=== PATIENT | male | born 2000 | race Caucasian/White ===

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

== ENCOUNTER 2022-02-09 11:22 | Emergency (ER) | payer BC, SELFPAY ==
[2022-02-09 12:03] VITALS: BP 125/75; PULSE 92; RESP 18; TEMP 36.7; O2SAT 98; BMI 23.3
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
[2022-02-09 12:12] VITALS: BP 121/74; PULSE 90; RESP 16; TEMP 36.7; O2SAT 98
== END 2022-02-09 12:12 | disposition home or self-care (01) ==
PROVIDERS: Emergency Provider Nurse Practitioner Family
DX: U07.1 COVID-19 (principal)
CPT/HCPCS: 99212; C9803; G0463; U0003; U0005

== ENCOUNTER 2022-02-14 11:50 | Emergency (ER) | payer BC, SELFPAY ==
[2022-02-14 12:15] VITALS: BP 112/76; PULSE 89; RESP 21; TEMP 36.7; O2SAT 97; BMI 23.8
--- NOTE | 2022-02-14 13:04 | HMH.EDUTC ---
[facility] [place] Disposition Clinical Impression: Encounter for laboratory testing for COVID-19 virus Disposition: Home, Self-Care Condition on Discharge: Good Instructions: DI for COVID-19 (Suspected or Confirmed ), Preventing the Spread of Coronavirus Discharge Instructions Additional Instructions: May return to work per CDC guidelines or company policy If you are no longer having symptoms may return after 5-10 days but need to wear a well fitted mask Return if needed Straight to ER if any life threatening symptoms Referrals: Provider,Referral, MD [Primary Care Provider] - As needed Forms: Work/School Release Time of Disposition: 13:09 Medical Decision Making - Raul Inquiry Pt receiving controlled substance: No Raul was queried for this patient: No Vital Signs: 02/14/22 12:15 Temperature 98.0 F Temperature Source Oral Pulse Rate [Right Brachial] 89 Respiratory Rate 21 Blood Pressure [Right Arm] 112/76 Blood Pressure Mean [Right Arm] 88 Blood Pressure Source [Right Arm] Automatic Cuff Blood Pressure Position [Right Arm] Sitting 02 Sat by Pulse Oximetry 97 Oxygen Delivery Method Room Air Orders (Tests/Meds): ORDERS Category Date Time Status Covid-19 Nasal PCR ([facility]) Routine Lab 02/14/22 12:15 Received [facility] [place] HPI - General Stated complaint: congested, needs covid test Time Seen by Provider: 02/14/22 13:04 Mode of Arrival: Ambulatory Source of Information: Patient Limitations: No Limitations Description of Symptoms (Recalled from Triage Doc. by RN): PATIENT TESTED POSITIVE FOR COVID LAST WEEK AND IS NEEDING A NEGATIVE TEST TO RETURN TO WORK HEENT Symptoms (Recalled from RN notes): No Resp Symptoms (Recalled from RN notes): No Skin Symptoms (Recalled from RN notes): No MS Symptoms (Recalled from RN notes): No Functional Status (Recalled from RN notes): WNL - History of Present Illness Provider Complaint: Patient states that he was positive for COVID about a week ago State that they are wanting him to get retested and have a negative teste before he can return so he came in to get tested - Related Data Previous Rx's Medication Instructions Recorded cephALEXin [Keflex 500mg Cap] 500 mg PO Q6H 5 Days #20 cap 07/13/20 Amoxicillin/Potassium Clav 1 tab PO BID #20 tab 12/03/21 [Amox-Clav 875-125 mg Tablet] Brompheniramine/Pseudoephed/Dm 5 ml PO Q6HP PRN #240 ml 12/03/21 [Bromfed Dm Cough Syrup] methylPREDNISolone [Medrol] 4 mg PO DIRECTED 6 Days #21 12/03/21 packet Brompheniramine/Pseudoephed/Dm 5 ml PO Q6HP PRN #240 ml 02/09/22 [Bromfed Dm Cough Syrup] Ondansetron [Zofran 4mg ODT] 4 mg PO Q8HP PRN #12 tab 02/09/22 Allergies Allergy/AdvReac Type Severity Reaction Status Date / Time No Known Allergies Allergy Unverified 07/11/17 14:13 - Worker's Comp Is this a Worker's Comp case?: No [facility] History - Hepatitis A Screen Attestation statement:: This patient has been screened for Hepatitis A risk factors. I have reviewed the patient's past medical history: Yes - Social History Alcohol Intake: never Occupational Status: other ROS Obtained: Yes All systems reviewed & no additional complaints, Yes Systems reviewed as appropriate & no additional complaints - Constitutional Constitutional: Reports system reviewed and no additional complaints, except as docu, Denies body ache, Denies chills, Denies fever(s) - ENT Ears, Nose, Mouth, and Throat: Reports system reviewed and no additional complaints, except as docu, Denies nasal congestion, Denies nasal discharge, Denies sore throat - Cardiovascular Cardiovascular: Reports system reviewed and no additional complaints, except as docu - Respiratory Respiratory: Reports system reviewed and no additional complaints, except as docu, Denies shortness of breath, Denies cough, Denies dyspnea Physical Exam - General General appearance: alert, in no apparent distress - Respiratory Respiratory exam: Present: normal luis alfredo
[2022-02-14 13:12] VITALS: BP 112/76; PULSE 89; RESP 21; TEMP 36.7; O2SAT 97
== END 2022-02-14 13:15 | disposition home or self-care (01) ==
PROVIDERS: Emergency Provider Nurse Practitioner
DX: U07.1 COVID-19 (principal)
CPT/HCPCS: 99212; C9803; G0463; U0003; U0005

== ENCOUNTER 2022-04-11 13:33 | Emergency (ER) | payer BC, SELFPAY ==
[2022-04-11 13:57] VITALS: BP 111/77; PULSE 67; RESP 16; TEMP 36.7; O2SAT 98; BMI 23.3
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
[2022-04-11 15:33] VITALS: BP 111/77; PULSE 67; RESP 16; TEMP 36.7
== END 2022-04-11 15:35 | disposition home or self-care (01) ==
PROVIDERS: Emergency Provider Nurse Practitioner
DX: S93.401A Sprain of unspecified ligament of right ankle, initial encounter (principal); W20.8XXA Other cause of strike by thrown, projected or falling object, initial encounter
CPT/HCPCS: 73610; 73630; 99212; G0463

== ENCOUNTER 2022-05-30 12:51 | Emergency (ER) | payer BC, SELFPAY ==
[2022-05-30 14:21] VITALS: BP 127/73; PULSE 74; RESP 18; TEMP 36.6; O2SAT 98; BMI 22.8
[2022-05-30 14:24] LABS: UTC Strep Screen (Rapid) Negative (Negative)
--- NOTE | 2022-05-30 14:41 | EXP.UTC ---
Discharge Plan Disposition Patient Disposition: Home, Self-Care Condition: Good Referrals Follow up/Referrals: Provider,Referral, MD [Primary Care Provider] - See instructions Activity Restrictions/Add. Instructions Additional Instructions/Restrictions: *Monitor Temp, Over the counter Motrin or Tylenol as directed/as needed Tylenol every 4 hours and Motrin every 6 hours (as long as your family doctor has told you that you can take it) for fever or pain. and straight to ER if unable to lower temp less than 101.0 after medication given *Warm salt water gargles may help to soothe the throat *Throat Lozenges? *Warm fluids like tea with honey may help to soothe the throat? *Sleep elevated *Humidifier/Vaporizer Your throat swab was sent for culture. Those results are typically sent to your primary care. Be sure to follow up in 2-3 days with your family doctor/primary care physician if no improvement so they can review those result and treat if necessary. If you don?t have a primary care doctor, I recommend you get one but in the mean time, you will have to return to a walk in clinic Follow up IMMEDIATELY for new or worsening symptoms or no Noticeable improvement over the next 48-72 hours. 911 for difficulty breathing or swallowing You were tested for today for COVID19 your test result should be back in the next 24-48 hours, you may check your results on the [facility] [employer] [facility] Clinical Impressions Clinical Impression: Viral syndrome Stand Alone Forms Stand Alone Forms: Work/School Release Discharge ED [place] [facility] [place] General Stated complaint: Headache,Sore throat Mode of Arrival: Ambulatory Source of Information: Patient Limitations: No Limitations Time Seen by Provider: 05/30/22 14:42 Description of Symptoms (Recalled from Triage Doc. by RN): PT TO [facility] WITH HEADACHE AND RUNNY NOSE SINCE YESTERDAY HEENT Symptoms (Recalled from RN notes): Yes (SORE THROAT, HEADACHE) Resp Symptoms (Recalled from RN notes): No Skin Symptoms (Recalled from RN notes): No MS Symptoms (Recalled from RN notes): No Functional Status (Recalled from RN notes): WDL History of Present Illness Provider Complaint: Patient states that he started yesterday with body aches, headache, sore throat and runny nose States that today he was still not feeling well so he came in to get checked out Related Data Allergies Allergy/AdvReac Type Severity Reaction Status Date / Time No Known Allergies Allergy Verified 04/11/22 13:59 Worker's Comp Is this a Worker's Comp case?: No PFSH PFSH Social History (Updated 04/11/22 @ 15:15 by Ivy Tan APRN) Smoking Status: Unknown if ever smoked alcohol intake: never current occupational status: other Travel in the last 8 weeks: None ROS Obtained: Yes All systems reviewed & no additional complaints except as documented and Yes Systems reviewed as appropriate & no additional complaints except as documented Constitutional Constitutional: Reports system reviewed and no additional complaints, except as documented, Reports as per HPI, Reports body ache and Reports chills ENT Ears, Nose, Mouth, and Throat: Reports system reviewed and no additional complaints, except as documented, Reports as per HPI, Reports nasal congestion, Reports nasal discharge and Reports sore throat Cardiovascular Cardiovascular: Reports system reviewed and no additional complaints, except as documented and Reports as per HPI Respiratory Respiratory: Reports system reviewed and no additional complaints, except as documented and Reports as per HPI Physical Exam General General appearance: alert and in no apparent distress Expanded ENT Exam Nose exam: Present other (clear draiange noted) Throat exam: Present other (mild pharyngeal erythema noted no exudate) Respiratory Respiratory exam: Present normal lung sounds bilaterally; Absent respiratory distress or wheezes Cardiovascular Cardiovascular e
[2022-05-30 15:00] VITALS: BP 121/72; PULSE 72; RESP 18; TEMP 36.6; O2SAT 98
[2022-05-30 15:03] LABS: Adenovirus,PCR Not Detected (NotDetected); Bordetella Pertussis Not Detected (NotDetected); Chlamydophila Pneumoniae, PCR Not Detected (NotDetected); Coronavirus 19, PCR Not Detected (NotDetected); Coronavirus 229E Not Detected (NotDetected); Coronavirus NL63 Not Detected (NotDetected); Coronavirus OC43 Not Detected (NotDetected); Coronovirus HKU1,PCR Not Detected (NotDetected); Human Metapneumovirus Not Detected (NotDetected); Influenza A, PCR Not Detected (NotDetected); Influenza AH1, PCR Not Detected (NotDetected); Influenza AH3,PCR Not Detected (NotDetected); Influenza B, PCR Not Detected (NotDetected); Mycoplasma Pneumoniae, PCR Not Detected (NotDetected); Parainfluenza 1, PCR Not Detected (NotDetected); Parainfluenza 2, PCR Not Detected (NotDetected); Parainfluenza 3, PCR Not Detected (NotDetected); Parainfluenza 4, PCR Not Detected (NotDetected); Respiratory Syncytial Virus Not Detected (NotDetected); Rhinovirus/Enterovirus Not Detected (NotDetected)
[2022-05-30 21:24] LABS: Influenza AH1, 2009 Detected (NotDetected)
== END 2022-05-30 15:01 | disposition home or self-care (01) ==
PROVIDERS: Emergency Provider Nurse Practitioner
DX: R51.9 Headache, unspecified (principal); J02.9 Acute pharyngitis, unspecified; B34.9 Viral infection, unspecified
CPT/HCPCS: 87581; 87632; 87798; 87880; 99212; C9803; G0463; U0003; U0005